=== PATIENT | male | born 1980 | race Caucasian/White ===

== ENCOUNTER 2018-06-07 07:31 | Emergency (ER) | payer BC ==
--- NOTE | 2018-06-07 08:35 | EDM.PDOC ---
ED HPI GENERAL MEDICAL PROBLEM - General Chief Complaint: ENT Problem Stated Complaint: SORE THROAT AND RIGHT EAR HURTS Time Seen by Provider: 06/07/18 07:39 Source of Information: Reports: Patient History Limitations: Reports: No Limitations - History of Present Illness INITIAL COMMENTS - FREE TEXT/NARRATIVE: History of present illness: []Patient started having a sore throat 2-3 days ago that has progressively worsened. He had diagnosis of strep throat a month ago and was treated with cephalosporin symptoms resolved. Review of systems: As per history of present illness and below otherwise all systems reviewed and negative. Past medical history: As per history of present illness and as reviewed below otherwise noncontributory. Surgical history: As per history of present illness and as reviewed below otherwise noncontributory. Social history: No reported history of drug or alcohol abuse. Family history: As per history of present illness and as reviewed below otherwise noncontributory. Physical exam: General: Well developed, well nourished in NAD HEENT: Atraumatic, normocephalic, pupils reactive, negative for conjunctival pallor or scleral icterus, mucous membranes moist, throat erythematous and edematous uvula exudate, neck supple, nontender, trachea midline. No stridor Lungs: Clear to auscultation, breath sounds equal bilaterally, chest nontender. No wheezing Heart: S1S2, regular, negative for clicks, rubs, or JVD. Abdomen: NABS, Soft, nondistended, nontender. Negative for masses or hepatosplenomegaly. Negative for costovertebral tenderness. Pelvis: Stable nontender. Genitourinary: Deferred. Rectal: Deferred. Extremities: Atraumatic, negative for cords or calf pain. Neurovascular unremarkable. Neuro: Awake, alert, oriented. Cranial nerves II through XII unremarkable. Cerebellum unremarkable. Motor and sensory unremarkable throughout. Exam nonfocal. Skin:warm and dry Diagnostics: Rapid strep, influenza negative Therapeutics: Declined pain meds ED Course: Unremarkable Impression: Viral URI Prescriptions: None Plan: Increase fluids, Tylenol, Motrin, follow-up with primary care or return to ER if symptoms worsen or change. Definitive disposition and diagnosis as appropriate pending reevaluation and review of above. throat Pain Score (Numeric/FACES): 5 - Related Data Allergies Allergy/AdvReac Type Severity Reaction Status Date / Time No Known Allergies Allergy Verified 06/07/18 07:41 Home Meds: Home Meds . [No Known Home Meds] 06/07/18 [History] Past Medical History - Past Health History Medical/Surgical History: Denies Medical/Surgical History HEENT History: Reports: None Cardiovascular History: Reports: None Respiratory History: Reports: None Gastrointestinal History: Reports: None Genitourinary History: Reports: None Musculoskeletal History: Reports: None Neurological History: Reports: None Psychiatric History: Reports: None Endocrine/Metabolic History: Reports: None Hematologic History: Reports: None Immunologic History: Reports: None Oncologic (Cancer) History: Reports: None Dermatologic History: Reports: None - Infectious Disease History Infectious Disease History: Reports: Chicken Pox - Past Surgical History Head Surgeries/Procedures: Reports: None HEENT Surgical History: Reports: None Cardiovascular Surgical History: Reports: None Respiratory Surgical History: Reports: None GI Surgical History: Reports: None Male Surgical History: Reports: None Endocrine Surgical History: Reports: None Neurological Surgical History: Reports: None Musculoskeletal Surgical History: Reports: None Oncologic Surgical History: Reports: None Dermatological Surgical History: Reports: None Social & Family History - Family History Family Medical History: Noncontributory - Tobacco Use Smoking Status *Q: Never Smoker Second Hand Smoke Exposure: No - Caffeine Use Caffeine Use: Reports: Coffee - Recreational Drug Use Recreational Drug Use: No ED ROS GENERAL - Review of Systems Review Of Systems: ROS reveals no pertinent complaints other than HPI. ED EXAM, GENERAL - Physical Exam Exam: See Below (See history of present illness) Course - Vital Signs Last Recorded V/S: Last Vital Signs Temp 97.7 F 06/07/18 07:42 Pulse 68 06/07/18 08:01 Resp 16 06/07/18 08:01 BP 144/100 H 06/07/18 08:01 Pulse Ox 98 06/07/18 08:01 - Orders/Labs/Meds Orders: Active Orders 24 hr Category Date Time Status CULTURE STREP A CONFIRMATION [] Stat Lab 06/07/18 07:47 Results STREP SCRN A RAPID W CULT CONF [] Stat Lab 06/07/18 07:47 Results Departure - Departure Time of Disposition: 08:40 Disposition: Home, Self-Care 01 Condition: Good Clinical Impression: Viral URI - Discharge Information *PRESCRIPTION DRUG MONITORING PROGRAM REVIEWED*: No *COPY OF PRESCRIPTION DRUG MONITORING REPORT IN PATIENT JOE: No Instructions: Viral Respiratory Infection, [id number] Referrals: Chester Villanueva MD [Primary Care Provider] - Forms: ED Department Discharge Additional Instructions: The following information is given to patients seen in the emergency department who are being discharged to home. This information is to outline your options for follow-up care. We provide all patients seen in our emergency department with a follow-up referral. The need for follow-up, as well as the timing and circumstances, are variable depending upon the specifics of your emergency department visit. If you don't have a primary care physician on staff, we will provide you with a referral. We always advise you to contact your personal physician following an emergency department visit to inform them of the circumstance of the visit and for follow-up with them and/or the need for any referrals to a consulting specialist. The emergency department will also refer you to a specialist when appropriate. This referral assures that you have the opportunity for follow-up care with a specialist. All of these measure are taken in an effort to provide you with optimal care, which includes your follow-up. Under all circumstances we always encourage you to contact your private physician who remains a resource for coordinating your care. When calling for follow-up care, please make the office aware that this follow-up is from your recent emergency room visit. If for any reason you are refused follow-up, please contact the [facility] Emergency Department at and asked to speak to the emergency department charge nurse. Ibuprofen, Tylenol, increase fluids, follow-up with primary care. Return to ER if symptoms worsen or change. [facility] [address] [place] [id number] - My Orders Last 24 Hours: My Active Orders 06/07/18 07:47 CULTURE STREP A CONFIRMATION [RM] Stat STREP SCRN A RAPID W CULT CONF [RM] Stat - Assessment/Plan Last 24 Hours: My Active Orders 06/07/18 07:47 CULTURE STREP A CONFIRMATION [RM] Stat STREP SCRN A RAPID W CULT CONF [RM] Stat
[2018-06-07 09:06] VITALS: BP 130/100
== END 2018-06-07 08:45 | disposition home or self-care (01) ==
LOC: MW.ED 07:31
DX: J06.9 Acute upper respiratory infection, unspecified (principal)
CPT/HCPCS: 87081; 87804; 87880-QW; 99283

== ENCOUNTER 2024-05-12 08:05 | Day surgery (SDC) | payer BC ==
[~2024-05-12 08:05] MED LIST: Bupivacaine 0.5%/EPINEPHrine 1:200,000 30 ML SDV ONE; ceFAZolin 2 GM in Sodium Chloride 0.9% 50 ML IV ONE
[2024-05-12] MEDS ORDERED: Phenylephrine HCl In 0.9% NaCl 1 MG/10 ML Syringe IVPUSH PRN (08:48)
[2024-05-12] MEDS ORDERED: Morphine 2 MG/ML SYRINGE IVPUSH PRN (08:48)
[2024-05-12] MEDS ORDERED: HYDROmorphone 1 MG/ML Syringe IVPUSH PRN (08:48)
[2024-05-12] MEDS ORDERED: fentaNYL 50 MCG/ML SDV IVPUSH PRN (08:48)
[2024-05-12] MEDS ORDERED: Naloxone 0.4 MG/ML SDV IVPUSH PRN (08:48)
[2024-05-12] MEDS ORDERED: Albuterol 0.083% 2.5 MG/3 ML Neb Soln NEB PRN (08:48)
[2024-05-12] MEDS ORDERED: Ondansetron 4 MG/2 ML SDV IVPUSH PRN (08:48)
[2024-05-12] MEDS ORDERED: Metoclopramide 10 MG/2 ML SDV IVPUSH PRN (08:48)
[2024-05-12] MEDS ORDERED: Lidocaine 2% 5 ML SDV ONE (09:18)
[2024-05-12] MEDS ORDERED: Midazolam 1 MG/ML 2 ML SDV ONE (09:18)
[2024-05-12] MEDS ORDERED: Propofol 200 MG/20 ML SDV ONE (09:18)
[2024-05-12] MEDS ORDERED: fentaNYL 100 MCG/2 ML SDV ONE (09:18)
[2024-05-12] MEDS: Lactated Ringers 1,000 ML IV SCH (09:30)
[2024-05-12] MEDS ORDERED: ceFAZolin 1 GM Vial ONE (09:55)
[2024-05-12] MEDS ORDERED: Ondansetron 4 MG/2 ML SDV ONE (09:56)
[2024-05-12] MEDS ORDERED: Dexamethasone 4 MG/ML 5 ML MDV ONE (09:56)
[2024-05-12] MEDS ORDERED: Ketorolac 30 MG/ML SDV ONE (10:17)
[2024-05-12] MEDS ORDERED: HYDROmorphone 1 MG/ML Syringe ONE (10:31)
[2024-05-12 12:15] VITALS: BP 108/76; PULSE 60
== END 2024-05-12 11:55 | disposition home or self-care (01) ==
LOC: MW.SDS 08:05
PROVIDERS: ATTEND Orthopaedic Surgery
DX: S83.252A Bucket-handle tear of lateral meniscus, current injury, left knee, initial encounter (principal); I10 Essential (primary) hypertension; E78.00 Pure hypercholesterolemia, unspecified; F32.A Depression, unspecified; F41.9 Anxiety disorder, unspecified; Z87.891 Personal history of nicotine dependence; Z79.899 Other long term (current) drug therapy; X58.XXXA Exposure to other specified factors, initial encounter
CPT/HCPCS: 29881; J0131; J0690; J1100; J1171; J1885; J2250; J2405; J2704; J3010; J7120; J3490